=== PATIENT | female | born 1985 | race Hispanic/Latino ===

== ENCOUNTER 2021-01-24 06:44 | Outpatient (CLI) | payer BC ==
[2021-01-24 09:08] LABS: #Eosinphils 0.5 10x3/uL (0.0-0.5); #Monocytes 0.5 10x3/uL (0.0-1.1); #Neutrophils 4.7 10x3/uL (1.5-8.4); %Basophils 0.5 % (0.0-2.0); %Eosinophils 6.3 % (0.0-6.0); %Lymphocytes 24.3 % (18.0-47.0); %Monocytes 6.4 % (0.0-10.0); %Neutrophils 62.4 % (40.0-75.0); Hemoglobin 13.5 g/dL (12.0-15.5); Mean Corpuscular HGB CONC 32.1 g/dL (32.0-36.0); Mean Corpuscular Hemoglobin 27.6 pg (27.0-33.0); Mean Corpuscular Volume 85.7 fl (81.6-98.3); Mean Platelet Volume 10.3 fl (7.4-10.4); Platelet Count 291 10x3/uL (150-450); RBC Distribution Width 12.6 % (11.5-14.5); White Blood Cell (WBC) Count 7.5 10x3/uL (3.5-10.5)
[2021-01-24 09:32] LABS: BHCG - Serum Negative (NEGATIVE); Pregs Control Background? CLEAR/WHITE (CLR/WHITE); Pregs Control Bar Appear? YES (CONTROL BAR)
[2021-01-24 09:41] LABS: ALT (SGPT) 16 U/L (8-55); AST (SGOT) 13 U/L (5-34); Albumin 4.5 g/dL (3.5-5.0); Alkaline Phosphatase 131 U/L (40-110); Anion Gap 13 mmol/L (10-20); BUN (Urea Nitrogen) 15 mg/dL (7.0-18.7); Bilirubin, Total 0.4 mg/dL (0.2-1.2); Calc. Creatinine Clearance 0 mL/min (70-130); Calcium 8.9 mg/dL (7.8-10.44); Carbon Dioxide 25 mmol/L (22-29); Chloride 106 mmol/L (98-107); Globulin 2.6 g/dL (2.4-3.5); Glucose 84 mg/dL (70-105); Potassium 5.1 mmol/L (3.5-5.1); Protein, Total 7.1 g/dL (6.0-8.3); Sodium 139 mmol/L (136-145)
[2021-01-24 17:08] LABS: SARS-CoV-2 PCR by NAA Not Detected (NotDetected)
== END 2021-01-24 06:45 | disposition home or self-care (01) ==
LOC: LABBT 06:44
PROVIDERS: ATTEND Surgery
DX: Z01.818 Encounter for other preprocedural examination (principal); E66.01 Morbid (severe) obesity due to excess calories; Z20.822 Contact with and (suspected) exposure to COVID-19
CPT/HCPCS: 71046; 80053; 83036; 84703; 85025; 93005; 93010; U0003; U0005

== ENCOUNTER 2021-01-24 07:00 | Inpatient (IN) | payer BC ==
[2021-01-29] MEDS ORDERED: Heparin 5,000 UNITS/ML VIAL ONE (06:07)
[2021-01-29] MEDS ORDERED: ceFAZolin Sodium (SDC) 2 GM/100 ML BAG ONE (06:07)
[2021-01-29] MEDS ORDERED: Bupivacaine 0.25% HCL 30 ML VIAL ONE ×2 (06:21→06:44)
[2021-01-29] MEDS ORDERED: EPINEPHrine 1 MG/ML AMP ONE (06:21)
[2021-01-29] MEDS ORDERED: HYDROmorphone 2 MG/ML VIAL ONE (06:33)
[2021-01-29] MEDS ORDERED: Midazolam HCl 2 mg/2 ml Vial ONE ×2 (06:33→07:06)
[2021-01-29] MEDS ORDERED: Fentanyl 100 MCG/2 ML VIAL ONE ×4 (06:33→19:28)
[2021-01-29] MEDS ORDERED: Promethazine HCl 25 MG/ML VIAL ONE (06:34)
[2021-01-29] MEDS ORDERED: SUGAMMADEX SODIUM 200 MG/2 ML VIAL ONE (06:34)
[2021-01-29] MEDS ORDERED: Phenylephrine 10 MG/ML VIAL ONE (06:34)
[2021-01-29] MEDS ORDERED: Lidocaine 1% w/Epinephrine 1:100K 20 ML VIAL ONE ×2 (06:44→15:56)
[2021-01-29] MEDS ORDERED: Rocuronium Bromide 10 MG/ML (10ML VIAL) ONE ×2 (07:29→16:39)
[2021-01-29] MEDS ORDERED: Dexamethasone 20 MG/5 ML VIAL ONE (07:29)
[2021-01-29] MEDS ORDERED: PROPOFOL 200 MG/20 ML VIAL ONE ×2 (07:29→16:39)
[2021-01-29] MEDS ORDERED: Glycopyrrolate 0.2 MG/ML 5 ML SYRINGE ONE ×2 (07:29→16:39)
[2021-01-29] MEDS ORDERED: Lidocaine 1% PF 5 ML VIAL ONE ×2 (07:29→16:39)
[2021-01-29] MEDS ORDERED: Ondansetron PF 4 MG/2 ML Vial ONE ×3 (07:29→16:39)
[2021-01-29] MEDS ORDERED: PHENYLEPHRINE-NS 100 MCG/ML 10 ML SYRINGE ONE (07:29)
[2021-01-29] MEDS ORDERED: diphenhydrAMINE 50 MG/ML VIAL IVP PRN ×2 (08:52→18:22)
[2021-01-29] MEDS ORDERED: Dextrose 5% in Water 1,000 ML IV PRN ×2 (08:52→18:22)
[2021-01-29] MEDS ORDERED: hydrALAZINE 20 MG/ML VIAL SLOW IVP PRN ×2 (08:52→18:22)
[2021-01-29] MEDS ORDERED: Hydrocodone-Acetamin 15 ML UDCUP PO PRN ×2 (08:52→18:22)
[2021-01-29] MEDS ORDERED: Dextrose 50% Abboject 50 ML SYRINGE SLOW IVP PRN ×2 (08:52→18:22)
[2021-01-29] MEDS ORDERED: Enoxaparin Sodium 30 MG/0.3 ML SYRINGE SC SCH (09:00)
[2021-01-29 10:43] VITALS: BMI 36.1
[2021-01-29] MEDS ORDERED: FLU VACC QS2021-22(6MOS UP)/PF 60 MCG/0.5 ML SYRINGE IM ONE (11:45)
[2021-01-29] MEDS: D5 1/2 NS w/20 mEq KCL 1,000 ML IV SCH ×2 (12:00→20:18)
[2021-01-29] MEDS ORDERED: Ketorolac Tromethamine 30 MG/ML VIAL IVP SCH (12:00)
[2021-01-29] MEDS ORDERED: Sodium Chloride 0.9% 1,000 ML IV SCH (13:00)
[2021-01-29 13:14] LABS: Hemoglobin 11.2 g/dL (12.0-16.0)
[2021-01-29] MEDS ORDERED: CEFAZOLIN 2 GM, IV Admixture Fee-Chemo 1 UNITS in Sodium Chloride 0.9% 100 ML IVPB SCH (14:00)
[2021-01-29] MEDS: Pantoprazole 40 MG VIAL IVP SCH (14:33)
[2021-01-29] MEDS ORDERED: Bupivacaine PF 0.5% 30 ML VIAL ONE (15:56)
[2021-01-29 16:05] LABS: Hemoglobin 10.2 g/dL (12.0-16.0)
[2021-01-29] MEDS ORDERED: Sodium Chloride 0.9% 10 ML ONE (16:25)
[2021-01-29] MEDS ORDERED: Succinylcholine 200 MG/10 ml SYRINGE FS ONE (16:39)
[2021-01-29] MEDS ORDERED: Ondansetron PF 4 MG/2 ML Vial IVP PRN (18:22)
[2021-01-29] MEDS ORDERED: Promethazine HCl 25 MG/ML VIAL IM PRN (18:22)
[2021-01-29] MEDS ORDERED: CEFAZOLIN 2 GM in Premix Bag 1 BAG IVPB SCH (18:30)
[2021-01-29] MEDS: Morphine 4 MG/ML VIAL SLOW IVP PRN ×2 (20:39→23:56)
[2021-01-29] MEDS: Ondansetron PF 4 MG/2 ML Vial IVP PRN (23:56)
[2021-01-30] MEDS: CEFAZOLIN 2 GM, IV Admixture Fee-Chemo 1 UNITS in Sodium Chloride 0.9% 100 ML IVPB SCH ×2 (00:05→09:55)
[2021-01-30] MEDS: D5 1/2 NS w/20 mEq KCL 1,000 ML IV SCH ×4 (04:08→20:34)
[2021-01-30 05:15] LABS: #Lymphocytes 1.2 thou/uL (1.20-3.40); #Monocytes 0.9 thou/uL (0.11-0.59); #Neutrophils 7.5 thou/uL (1.40-6.50); %Eosinophils 0.1 % (0.0-10.0); %Lymphocytes 12.8 % (21.0-51.0); %Monocytes 9.4 % (0.0-10.0); %Neutrophils 77.8 % (42.0-75.0); Hemoglobin 10.7 g/dL (12.0-16.0); Mean Corpuscular HGB CONC 33.8 g/dL (32.0-36.0); Mean Corpuscular Hemoglobin 28.7 pg (27.0-31.0); Mean Corpuscular Volume 84.8 fL (78.0-98.0); Mean Platelet Volume 7.6 fL (7.4-10.4); Platelet Count 193 thou/uL (130-400); RBC Distribution Width 12.2 % (11.5-14.5); Red Blood Cell (RBC) Count 3.74 mill/uL (4.20-5.40); White Blood Cell (WBC) Count 9.6 thou/uL (4.8-10.8)
[2021-01-30 05:36] LABS: Anion Gap 9 mmol/L (10-20); BUN (Urea Nitrogen) 7 mg/dL (7.0-18.7); Calc. Creatinine Clearance 177 mL/min (70-130); Calcium 7.6 mg/dL (7.8-10.44); Carbon Dioxide 23 mmol/L (22-29); Chloride 106 mmol/L (98-107); Glucose 151 mg/dL (70-105); Potassium 4.3 mmol/L (3.5-5.1); Sodium 134 mmol/L (136-145)
[2021-01-30] MEDS ORDERED: Pantoprazole 40 MG VIAL IVP SCH (09:00)
[2021-01-30] MEDS: Ondansetron PF 4 MG/2 ML Vial IVP PRN (09:00)
[2021-01-30] MEDS: Pantoprazole 40 MG VIAL IVP SCH (09:55)
[2021-01-30] MEDS: Morphine 4 MG/ML VIAL SLOW IVP PRN (12:10)
[2021-01-30 13:04] LABS: Hemoglobin 9.1 g/dL (12.0-16.0)
[2021-01-30] MEDS: Promethazine HCl 25 MG/ML VIAL IM PRN (20:34)
[2021-01-31] MEDS: Morphine 4 MG/ML VIAL SLOW IVP PRN ×2 (02:16→14:57)
[2021-01-31] MEDS: Promethazine HCl 25 MG/ML VIAL IM PRN (02:26)
[2021-01-31] MEDS: D5 1/2 NS w/20 mEq KCL 1,000 ML IV SCH ×3 (03:27→18:29)
[2021-01-31 06:25] LABS: #Lymphocytes 2.1 thou/uL (1.20-3.40); #Monocytes 0.9 thou/uL (0.11-0.59); #Neutrophils 5.5 thou/uL (1.40-6.50); %Eosinophils 0.3 % (0.0-10.0); %Lymphocytes 24.7 % (21.0-51.0); %Monocytes 10.3 % (0.0-10.0); %Neutrophils 64.7 % (42.0-75.0); Hemoglobin 9.5 g/dL (12.0-16.0); Mean Corpuscular HGB CONC 34.3 g/dL (32.0-36.0); Mean Corpuscular Hemoglobin 29.1 pg (27.0-31.0); Mean Corpuscular Volume 84.9 fL (78.0-98.0); Mean Platelet Volume 7.1 fL (7.4-10.4); Platelet Count 179 thou/uL (130-400); RBC Distribution Width 12.3 % (11.5-14.5); Red Blood Cell (RBC) Count 3.26 mill/uL (4.20-5.40); White Blood Cell (WBC) Count 8.5 thou/uL (4.8-10.8)
[2021-01-31] MEDS: Pantoprazole 40 MG VIAL IVP SCH (10:25)
[2021-01-31] MEDS: Ondansetron PF 4 MG/2 ML Vial IVP PRN (14:57)
[2021-02-01] MEDS: D5 1/2 NS w/20 mEq KCL 1,000 ML IV SCH ×2 (02:00→08:59)
[2021-02-01 07:45] VITALS: TEMP 98.2
[2021-02-01] MEDS: Pantoprazole 40 MG VIAL IVP SCH (08:50)
[2021-02-01 12:11] VITALS: BP 127/94
== END 2021-02-01 13:10 | disposition home or self-care (01) | DRG 620 ==
LOC: SDC 01-29 05:53 → SURG A 01-29 05:56 → EDSTATUS 01-29 07:00 → SURG A 01-29 10:05
PROVIDERS: ADMIT Surgery; ATTEND Surgery
PROC: 0DB64ZZ Excision of Stomach, Percutaneous Endoscopic Approach (ICD-10-PCS; principal; 2021-01-29)
PROC: 0DCW4ZZ Extirpation of Matter from Peritoneum, Percutaneous Endoscopic Approach (ICD-10-PCS; 2021-01-29)
PROC: 30233N1 Transfusion of Nonautologous Red Blood Cells into Peripheral Vein, Percutaneous Approach (ICD-10-PCS; 2021-01-29)
DX: E66.01 Morbid (severe) obesity due to excess calories (principal); K91.841 Postprocedural hemorrhage of a digestive system organ or structure following other procedure; Z20.822 Contact with and (suspected) exposure to COVID-19; F32.A Depression, unspecified; I10 Essential (primary) hypertension; Y83.8 Other surgical procedures as the cause of abnormal reaction of the patient, or of later complication, without mention of misadventure at the time of the procedure; Z79.899 Other long term (current) drug therapy; Z68.36 Body mass index [BMI] 36.0-36.9, adult; Z83.49 Family history of other endocrine, nutritional and metabolic diseases; Z83.3 Family history of diabetes mellitus
CPT/HCPCS: 36415; 36430; 74177; 80048; 85014; 85018; 85025; 86850; 86900; 86901; 88307; C9113; J0171; J0690; J1100; J1170; J1644; J1885; J2250; J2270; J2370; J2405; J2550; J2704; J3010; J3480; J3490; J7050; P9016; S0020

== ENCOUNTER 2021-02-08 11:59 | Day surgery (SDC) | payer BC ==
[2021-02-08] MEDS ORDERED: Ondansetron PF 4 MG/2 ML Vial IVP PRN (12:13)
[2021-02-08] MEDS ORDERED: Sodium Chloride 0.9% 1,000 ML IV SCH (12:15)
[2021-02-08] MEDS ORDERED: Multivitamins, Adult 10 ML, Thiamine HCl 100 MG in Sodium Chloride 0.9% 1,000 ML IV SCH (12:15)
[2021-02-08 14:20] VITALS: BP 136/95
== END 2021-02-08 14:23 | disposition home or self-care (01) ==
LOC: ONC/OP 11:59
PROVIDERS: ATTEND Surgery
DX: E86.0 Dehydration (principal)
CPT/HCPCS: 96365; 96366; J2405; J3411; J7050